=== PATIENT | female | born 1965 | race Hispanic/Latino ===

== ENCOUNTER 2017-02-07 12:23 | Emergency (ER) | payer OTHER ==
[2017-02-07 13:00] VITALS: BP 125/86; PULSE 69; RESP 18; TEMP 97; O2SAT 100
--- NOTE | 2017-02-07 14:01 | ED PDOC ---
Upper Extremity Pain/Injury Time Seen by Provider: 02/07/17 13:46 Chief Complaint (Nursing): Upper Extremity Problem/Injury Chief Complaint (Provider): Right hand pain, swelling s/p fall History Per: Patient History/Exam Limitations: no limitations Onset/Duration Of Symptoms: Days Current Symptoms Are (Timing): Still Present Quality: Dull Severity: Mild Additional Complaint(s): Pt states 3 days ago she was going around a corner out of a restaurant that was on a slight hill. She miss judeged the steps and fell down a small hill next to the steps. Pt reports pain in the 4-5 metacarpals with movement of the 4-5 digits Past Medical History Reviewed: Historical Data, Nursing Documentation, Vital Signs Vital Signs: Last Vital Signs Temp 97 F L 02/07/17 12:56 Pulse 69 02/07/17 12:56 Resp 18 02/07/17 12:56 BP 125/86 02/07/17 12:56 Pulse Ox 100 02/07/17 12:56 - Medical History PMH: No Chronic Diseases - Family History Family History: States: No Known Family Hx - Allergies Allergies/Adverse Reactions: Allergies Allergy/AdvReac Type Severity Reaction Status Date / Time Penicillins Allergy RASH Verified 02/07/17 12:59 Review of Systems ROS Statement: Except As Marked, All Systems Reviewed And Found Negative Musculoskeletal: Positive for: Hand Pain Skin: Positive for: Bruising Physical Exam - Reviewed Nursing Documentation Reviewed: Yes Vital Signs Reviewed: Yes - Physical Exam Appears: Positive for: Well, Non-toxic, No Acute Distress Head Exam: Positive for: ATRAUMATIC, NORMAL INSPECTION, NORMOCEPHALIC Skin: Positive for: Warm. Negative for: Normal Color (Ecchymosis right hand ) Eye Exam: Positive for: Normal appearance ENT: Positive for: Normal ENT Inspection Neck: Positive for: Normal, Painless ROM Respiratory: Negative for: Accessory Muscle Use, Respiratory Distress Back: Positive for: Normal Inspection Extremity: Positive for: Normal ROM, Swelling, Other (Tenderness of the 4th and 5th metacarpal ) Neurologic/Psych: Positive for: Alert, Oriented - ECG O2 Sat by Pulse Oximetry: 100 Medical Decision Making Medical Decision Making: Bone lesion discussed with patient. Pt is aware the although malignancy is less likely then other diagnosis it cannot be excluded and she needs follow-up. (+) 4th metacarpal fracture. Disposition - Clinical Impression Clinical Impression: Metacarpal bone fracture, Osteolytic lesion - Patient ED Disposition Is Patient to be Admitted: No Counseled Patient/Family Regarding: Diagnosis, Need For Followup - Disposition Referrals: Prasanth Toledo MD [Staff Provider] - Disposition: Routine/Home Disposition Time: 15:04 Condition: GOOD Additional Instructions: Please follow-up with hand specialist for evaluation of bone lesion and fracture. Forms: [employer] (I[place]ic)
--- NOTE | 2017-02-07 14:58 | RAD ---
PROCEDURE: Right Hand Radiographs. HISTORY: hand pain, 4-5 metacarpal COMPARISON: None. FINDINGS: BONES: There is an an oblique lucency in the midshaft of the 4th metacarpal. There is an expansile osteolytic lesion in the base of the 4th metacarpal. Bone alignment is normal. JOINTS: Normal. No osteoarthritic changes. SOFT TISSUES: Normal. OTHER FINDINGS: None. IMPRESSION: 1. Age indeterminate likely acute/subacute nondisplaced fracture in the midshaft of the 4th metacarpal. 2. 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 The differential considerations include enchondroma, chondroblastoma, and giant cell tumor amongst others. Malignant neoplasm is less likely but not entirely excluded.
== END 2017-02-07 18:16 | disposition home or self-care (01) ==
LOC: H.ER 12:23
DX: S62.304A Unspecified fracture of fourth metacarpal bone, right hand, initial encounter for closed fracture (principal); W19.XXXA Unspecified fall, initial encounter; Y92.89 Other specified places as the place of occurrence of the external cause